=== PATIENT | male | born 1945 | race Caucasian/White ===

== ENCOUNTER 2019-02-14 17:07 | Inpatient (IN) | payer OTHER, MEDICARE ==
[~2019-02-14] VITALS: Ht 167.6 cm; Wt 77.7 kg
[2019-02-14] MEDS ORDERED: FURO40 PO (19:46)
[2019-02-14] MEDS ORDERED: NIFE60ER PO (19:46)
[2019-02-14] MEDS ORDERED: SEVEC800 PO (19:46)
[2019-02-14] MEDS ORDERED: TERA5 PO (19:47)
[2019-02-14] MEDS ORDERED: DOCU100 PO (19:47)
[2019-02-14] MEDS ORDERED: ICY HOT 4%-1%76.5 GM TOP (19:48)
[2019-02-14] MEDS ORDERED: POTA10T PO (19:48)
[2019-02-14] MEDS ORDERED: HYDRA25 PO (19:48)
[2019-02-14] MEDS ORDERED: Senna8.6 MG PO (19:48)
[2019-02-14] MEDS ORDERED: Fruity C250 MG PO (19:49)
[2019-02-14] MEDS ORDERED: HYDPAM50 PO (19:49)
[2019-02-14] MEDS ORDERED: TRAZ50 PO (19:50)
[2019-02-14] MEDS ORDERED: OXYB5 PO (19:50)
[2019-02-14] MEDS ORDERED: Vitamin D2000 UNIT PO (19:50)
[2019-02-14] MEDS ORDERED: Aspirin EC81 MG PO (22:01)
[2019-02-14] MEDS ORDERED: ATOR10 PO (22:02)
[2019-02-14] MEDS ORDERED: ERGO400 PO (22:04)
[2019-02-14] MEDS ORDERED: VOLTAREN GEL 1% TOP (22:07)
[2019-02-14] MEDS ORDERED: FAMO20 PO (22:08)
[2019-02-14] MEDS ORDERED: Eucerin Creme454 GM TOP (22:11)
[2019-02-14] MEDS ORDERED: MARIJUANA INH (22:15)
[2019-02-14] MEDS ORDERED: METCAR500 PO (22:16)
[2019-02-14] MEDS ORDERED: Lopressor 25 mg25 MG PO (22:17)
[2019-02-14] MEDS ORDERED: SILD50TA PO (22:20)
--- NOTE | 2019-02-15 04:22 | NUR ---
SHIFT SUMMARY- PT. ARRIVED FROM THE ER @2100 INTO ROOM 305 VIA STRETCHER. BROUGHT INTO FACILITY FROM THE [facility]. DX'S OF ACUTE ON CHRONIC KINDEY FAILURE. A&O, INDEPENDENT. CONSULT CALLED TO DR. RITTER. SCHEDULED MEDS GIVEN PER EMAR. NO IV FLUIDS RUNNING AT THIS TIME. PT. DENIED ANY NEEDS T/O THE NIGHT. ASLEEP T/O MOST OF THE SHIFT. CALL LIGHT WITHIN REACH AND SIDE RAILS UP X2. WILL CONT TO MONITOR.
[2019-02-15 07:32] LABS: BASOPHILS ABSOLUTE AUTO 0.04 K/mm3 (0.00-0.23); BASOPHILS PERCENT AUTO 1 % (0-2); EOSINOPHILS ABSOLUTE AUTO 0.47 K/mm3 (0.00-0.68); EOSINOPHILS PERCENT AUTO 8 % (0-6); Hematocrit 26.9 % (37.0-53.0); Hemoglobin 8.7 g/dL (13.5-17.5); IMMATURE GRAN ABSOLUTE AUTO 0.02 K/mm3 (0.00-0.10); IMMATURE GRAN PERCENT AUTO 0 % (0-1); LYMPHOCYTES ABSOLUTE AUTO 1.18 K/mm3 (0.84-5.20); LYMPHOCYTES PERCENT AUTO 19 % (21-46); MONOCYTES ABSOLUTE AUTO 0.72 K/mm3 (0.16-1.47); MONOCYTES PERCENT AUTO 12 % (4-13); Mean Corpuscular HGB 29.9 pg (26.0-34.0); Mean Corpuscular HGB Conc 32.3 g/dL (31.5-36.5); Mean Corpuscular Volume 92 fL (80-100); Mean Platelet Volume 9.4 fL (9.1-12.4); NEUTROPHILS ABSOLUTE AUTO 3.74 K/mm3 (1.96-9.15); NEUTROPHILS PERCENT AUTO 61 % (41-73); Platelet Count 285 K/mm3 (150-400); RDW Coefficient Variation 14.2 % (11.7-14.2); RDW Standard Deviation 48.3 fL (35.1-46.3); RETICULOCYTE ABSOLUTE 0.0442 M/mm3 (0.0200-0.1100); RETICULOCYTE COUNT PERCENT 1.52 % (0.50-2.50); Red Blood Cell Count 2.91 M/mm3 (4.30-5.90); White Blood Cell Count 6.17 K/mm3 (4.00-11.30)
[2019-02-15 07:42] LABS: Bun/Creatinine Ratio 7.9 (12.0-20.0); Calcium, Blood 8.8 mg/dL (8.5-10.1); Creatinine, Blood 3.94 mg/dL (0.60-1.20); Potassium, Blood 3.8 mmol/L (3.5-5.5)
[2019-02-15 07:54] LABS: Percent Saturation 18.4 % (20.0-50.0)
--- NOTE | 2019-02-15 20:33 | NUR ---
NO ACUTE CHANGES NOTED. NO CURRENT COMPLAINTS OF PAIN OR DISCOMFORT NOTED. PATIENT TO GO FOR KIDNEY BIOPSY IN THE MORINING. WILL CONTINUE TO MONITOR FOR CHANGES.
[2019-02-15 20:55] LABS: Bilirubin, Urine Neg (Neg); Blood, Urine 1+ (Neg); Glucose Qualitative, Urine Neg (Neg); Ketones, Urine Neg (Neg); Leukocyte Esterase, Urine Neg (Neg); Nitrite, Urine Neg (Neg); Protein, Urine 4+ (Neg); Specific Gravity, Urine 1.015 (1.003-1.022); Urobilinogen, Urine NORM (Normal)
[2019-02-15 21:02] LABS: Appearance, Urine Clear (Clear); Color, Urine Yellow (P-Yellow)
[2019-02-15 21:03] LABS: Red Blood Cells, Urine 0-2 /hpf (0-2); Squamous Epithelial Cells Rare /hpf (Few); White Blood Cells, Urine 0-2 /hpf (0-5)
[2019-02-15 21:04] LABS: Bacteria Rare /hpf
--- NOTE | 2019-02-16 03:19 | NUR ---
SHIFT SUMMARY- NO ACUTE CHANGES OVERNIGHT. PT. SCHEDULED FOR KIDNEY BIOPSY IN THE AM. SCHEDULED MEDS GIVEN PER EMAR. PT. RESTED WELL T/O THE NIGHT. DENIES ANY NEEDS. CALL LIGHT WITHIN REACH AND SIDE RAILS UP X2. WILL CONT TO MONITOR.
[2019-02-16 04:35] LABS: BASOPHILS ABSOLUTE AUTO 0.04 K/mm3 (0.00-0.23); BASOPHILS PERCENT AUTO 1 % (0-2); EOSINOPHILS ABSOLUTE AUTO 0.53 K/mm3 (0.00-0.68); EOSINOPHILS PERCENT AUTO 8 % (0-6); Hematocrit 24.7 % (37.0-53.0); Hemoglobin 8.1 g/dL (13.5-17.5); IMMATURE GRAN ABSOLUTE AUTO 0.01 K/mm3 (0.00-0.10); IMMATURE GRAN PERCENT AUTO 0 % (0-1); LYMPHOCYTES ABSOLUTE AUTO 1.63 K/mm3 (0.84-5.20); LYMPHOCYTES PERCENT AUTO 26 % (21-46); MONOCYTES ABSOLUTE AUTO 0.75 K/mm3 (0.16-1.47); MONOCYTES PERCENT AUTO 12 % (4-13); Mean Corpuscular HGB 30.8 pg (26.0-34.0); Mean Corpuscular HGB Conc 32.8 g/dL (31.5-36.5); Mean Corpuscular Volume 94 fL (80-100); NEUTROPHILS ABSOLUTE AUTO 3.44 K/mm3 (1.96-9.15); NEUTROPHILS PERCENT AUTO 54 % (41-73); Platelet Count 266 K/mm3 (150-400); RDW Coefficient Variation 14.2 % (11.7-14.2); RDW Standard Deviation 48.7 fL (35.1-46.3); Red Blood Cell Count 2.63 M/mm3 (4.30-5.90)
[2019-02-16 04:53] LABS: International Normalized Ratio 0.97; Prothrombin Time Results 10.3 Sec (9.7-11.5)
[2019-02-16 05:03] LABS: Albumin, Blood 2.6 g/dL (3.4-5.0); Anion Gap 6 mmol/L (6-16); Blood Urea Nitrogen 30 mg/dL (8-24); Bun/Creatinine Ratio 7.5 (12.0-20.0); CO2, Blood 25 mmol/L (21-32); Calcium, Blood 8.7 mg/dL (8.5-10.1); Chloride, Blood 109 mmol/L (98-108); Glomerular Filtration Rate 16 (60-); Glucose, Blood 88 mg/dL (70-99); Phosphorus, Blood 4.3 mg/dL (2.5-4.9); Potassium, Blood 3.5 mmol/L (3.5-5.5); Sodium, Blood 140 mmol/L (136-145)
--- NOTE | 2019-02-16 09:35 | NUR ---
PT. TO CT FOR BIOPSY VIA CART. BP MEDS GIVEN PRIOR TO PROCEDURE. PT. TRANSFERRED SELF FROM BED TO CART.
[2019-02-16 10:24] LABS: RPR Non-reactive (Nonreactive)
--- NOTE | 2019-02-16 11:00 | NUR ---
PT. BACK TO ROOM FROM PROCEDURE.A&O TRANSFERRED SELF TO BED. LAID BED FLAT AND GAVE PT. EXTRA PILLOW PER INSTRUCTION. REQUESTED MUSIC TO LISTEN TO. TURNED TV ON.
--- NOTE | 2019-02-16 11:30 | NUR ---
PT. REPORTING EXCRUCIATING PAIN IN RIGHT FLANK. CALLED RADIOLOGIST REGARDING HIS PAIN I FELT IT WAS EXCESSIVE FOR HIS PROCEDURE. RADIOLOGIST ORDERED NORCO BUT PT WAS NAUSEATED, CALLED DR. RIVERA FOR IV PAIN MED. CT. THEN CAME GOT PT. TO CHECK IF PATIENT WAS BLEEDING.
[2019-02-16 12:11] LABS: Antinuclear Antibody Screen Negative (Negative)
--- NOTE | 2019-02-16 12:14 | NUR ---
PT. GIVEN IV FENTYNYL AND CT CAME TO GET PT. RETURNED TO ROOM AT 1230. RADIOLOGIST TO INFORM ME PT WAS HAVING SEVERE BLEEDING INTERNALLY AND THAT I WAS SUPPOSED TO CALL DR. RITTER.
--- NOTE | 2019-02-16 13:10 | NUR ---
REPORT CALLED TO Donna CHANG RN IN ICU AND PT. TRANSFERRED TO ICU-11. PT.'S NS RUNNING WIDE OPEN PER DR. RITTER.
[2019-02-16 13:19] LABS: BASOPHILS ABSOLUTE AUTO 0.03 K/mm3 (0.00-0.23); BASOPHILS PERCENT AUTO 0 % (0-2); EOSINOPHILS ABSOLUTE AUTO 0.14 K/mm3 (0.00-0.68); EOSINOPHILS PERCENT AUTO 2 % (0-6); IMMATURE GRAN ABSOLUTE AUTO 0.04 K/mm3 (0.00-0.10); IMMATURE GRAN PERCENT AUTO 1 % (0-1); LYMPHOCYTES ABSOLUTE AUTO 1.24 K/mm3 (0.84-5.20); LYMPHOCYTES PERCENT AUTO 16 % (21-46); MONOCYTES ABSOLUTE AUTO 0.54 K/mm3 (0.16-1.47); MONOCYTES PERCENT AUTO 7 % (4-13); Mean Corpuscular HGB Conc 31.8 g/dL (31.5-36.5); Mean Platelet Volume 9.5 fL (9.1-12.4); NEUTROPHILS ABSOLUTE AUTO 6.02 K/mm3 (1.96-9.15); NEUTROPHILS PERCENT AUTO 75 % (41-73); Platelet Count 265 K/mm3 (150-400); RDW Coefficient Variation 14.5 % (11.7-14.2); RDW Standard Deviation 51.3 fL (35.1-46.3); Red Blood Cell Count 2.26 M/mm3 (4.30-5.90); White Blood Cell Count 8.01 K/mm3 (4.00-11.30)
[2019-02-16 13:20] LABS: Mean Corpuscular Volume 97 fL (80-100)
--- NOTE | 2019-02-16 13:20 | NUR ---
PT ADMITTED TO ICU FROM MEDICAL FLOOR FOR BLEED POST KIDNEY BX. PT AWAKE, C/O PAIN TO RIGHT FLANK 10/10. PT NAUSEATED AND WRETCHING. ZOFRAN 4MG IVP GIVEN. BP 99/57; NS BOLUS INFUSING. AWAITING BLOOD
[2019-02-16 13:38] LABS: Albumin, Blood 2.4 g/dL (3.4-5.0); Anion Gap 9 mmol/L (6-16); Blood Urea Nitrogen 32 mg/dL (8-24); Bun/Creatinine Ratio 7.9 (12.0-20.0); CO2, Blood 22 mmol/L (21-32); Calcium, Blood 8.5 mg/dL (8.5-10.1); Chloride, Blood 110 mmol/L (98-108); Creatinine, Blood 4.07 mg/dL (0.60-1.20); Glomerular Filtration Rate 15 (60-); Glucose, Blood 149 mg/dL (70-99); Phosphorus, Blood 4.1 mg/dL (2.5-4.9); Potassium, Blood 3.5 mmol/L (3.5-5.5); Sodium, Blood 141 mmol/L (136-145)
--- NOTE | 2019-02-16 13:54 | NUR ---
BLOOD TRANSFUSION STARTED, DR RIVERA CALLED TO GIVE UPDATE. PT REMAINS HYPOTENSIVE W PAIN TO R FLANK 10/10. NAUSEA IMPROVED.
--- NOTE | 2019-02-16 14:05 | NUR ---
CALLED DR DENNY: INFORMED DR DENNY OF CONSULT AND UPDATED WITH PT'S STATUS.
--- NOTE | 2019-02-16 14:45 | NUR ---
DR DENNY IN TO CONSULT PT. DISCUSSED CONTINUED HYPOTENSION. WORSE SINCE NS BOLUS FINISHED. 1ST UNIT OF BLOOD ALMOST COMPLETE, THEN F/U WITH 1 LITER NS BOLUS UNTIL 2ND UNIT OF BLOOD IS HERE. WILL RE-CHECK H+H 30 MINUTES AFTER 2ND UNIT PRBC'S.
--- NOTE | 2019-02-16 15:46 | NUR ---
PT TO WAIVER ANALYST FOR INTERVENTION W DR MARTINEZ. DR DENNY ON CASE. 2ND UNIT PRBC'S INFUSING AT 400CC PER DR DENNY. 2ND NS BOLUS STOPPED PER DR DENNY. PT'S FAMILY NOTIFIED PER PT REQUEST
--- NOTE | 2019-02-16 18:13 | NUR ---
ASSUMED CARE REPORT FROM ELENITA DENNY, PT. ARRIVAL FROM HEART CENTER STAFF. PT. ALERT AND ORIENTED UPON ARRIVAL. VSS. PT. REPORTS PAIN TO BACK, BUT REPORTS SIGNIFICANTLY LESS PAIN THEN PRIOR TO PROCEDURE. PT. HAS RIGHT GROIN SITE WITH CLEAR OCCLUSIVE DRESSING IN PLACE, SITE VERIFIED WITH HEART CENTER STAFF. NO OOZING, SOFT, NO HEMATOMA. 2+PULSES TO BILAT LE. PER HEART CENTER STAFF, 2 COILS PLACED DURING PROCEDURE ALONG WITH STENT TO RIGHT RENAL ARTERY. PT HAS MYNX CLOSURE DEVICE TO RIGHT GROIN. FAMILY UPDATED WHEN PT ARRIVED TO UNIT PER REQUEST. REPORT TO LUIS MIGUEL DENNY.
--- NOTE | 2019-02-16 20:00 | NUR ---
ASSUMED CARE OF PT AT 1915. REPORT RECEIVED AT BEDSIDE. PT PRESENTS IN BED. ALERT AND ORIENTED. PLEASANT AND COOPERATIVE WITH CARE AND ASSESSMENT. DENIES COMPLAINTS OF PAIN OR DISTRESS AT THIS TIME. RIGHT GROIN SITE VERIFIED WITH OFFGOING RN. SOFT NON-TENDER. NO HEMATOMA OR OOZING. GOOD DISTAL CMS CHECKS. WILL REVIEW CHART AND PLAN OF CARE FOR THIS PT.
--- NOTE | 2019-02-16 23:00 | NUR ---
RIGHT GROIN SITE REMAINS STABLE. PT UP TO TOILET WITH ASSIST. ORTHOSTATIC BLOOD PRESSURES DONE DURING THIS TIME. PT DOES HAVE DROP IN BLOOD PRESSURE WHILE STANDING. STATES MILDLY DIZZY WHICH CORRECTS QUICKLY. WAS ABLE TO AMBULATE IN ROOM WITHOUT COMPLAINTS. HAS LARGE BM, AND VOIDS. BACK TO BED. BLOOD PRESSURES WNL. WILL CONTINUE TO MONITOR.
[2019-02-17 04:07] LABS: HBSAG SCREEN Negative (Negative); HEP B CORE AB, TOT Negative (Negative); HEP C VIRUS AB >11.0 (0.0-0.9); HIV SCREEN 4TH GENERATION WRFX Non Reactive (Non Reactive)
[2019-02-17 04:52] LABS: BASOPHILS ABSOLUTE AUTO 0.02 K/mm3 (0.00-0.23); BASOPHILS PERCENT AUTO 0 % (0-2); EOSINOPHILS PERCENT AUTO 0 % (0-6); Hematocrit 21.4 % (37.0-53.0); Hemoglobin 7.1 g/dL (13.5-17.5); IMMATURE GRAN ABSOLUTE AUTO 0.03 K/mm3 (0.00-0.10); IMMATURE GRAN PERCENT AUTO 0 % (0-1); LYMPHOCYTES ABSOLUTE AUTO 1.22 K/mm3 (0.84-5.20); LYMPHOCYTES PERCENT AUTO 14 % (21-46); MONOCYTES ABSOLUTE AUTO 1.09 K/mm3 (0.16-1.47); MONOCYTES PERCENT AUTO 12 % (4-13); Mean Corpuscular HGB 31.3 pg (26.0-34.0); Mean Corpuscular HGB Conc 33.2 g/dL (31.5-36.5); Mean Platelet Volume 9.5 fL (9.1-12.4); NEUTROPHILS PERCENT AUTO 73 % (41-73); Platelet Count 192 K/mm3 (150-400); RDW Coefficient Variation 14.9 % (11.7-14.2); RDW Standard Deviation 51.7 fL (35.1-46.3); Red Blood Cell Count 2.27 M/mm3 (4.30-5.90); White Blood Cell Count 8.86 K/mm3 (4.00-11.30)
[2019-02-17 04:53] LABS: Mean Corpuscular Volume 94 fL (80-100)
[2019-02-17 05:12] LABS: Bun/Creatinine Ratio 7.9 (12.0-20.0); Calcium, Blood 7.7 mg/dL (8.5-10.1); Creatinine, Blood 4.55 mg/dL (0.60-1.20); Potassium, Blood 4.2 mmol/L (3.5-5.5)
--- NOTE | 2019-02-17 06:38 | NUR ---
PT HAS BEEN ABLE TO REST THIS NIGHT. DID HAVE SOME DESATURATIONS WHILE ASLEEP. PLACED 2 L/M O2 WHEREAS PT MAINTAINS >90 PERCENT SATURATIONS. CALL FROM PT'S DAUGHTER DEMETRIUS. VERBAL PERMISSION GIVEN BY PT TO GIVE HER UPDATES. LABS DRAWN THIS AM AND RESULTS CALLED TO DR IZAGUIRRE. ORDER RECEIVED. NO S/S BLEEDING OR FLANK PAIN VOICED BY PT. NO HEMATURIA. NOTED HGB 7.0 HAVE STARTED ONE UNIT PRBC'S. WILL PASS ON TO ONCOMING RN THAT H/H NEEDS TO BE DRAWN 1 HOUR POST TRANSFUSION. CALL MD. LABS DRAWN FROM PICC LINE WITHOUT ISSUES. DID CHANGE PICC LINE DRESSING THIS AM. PT COOPERATIVE WITH CARE. WILL CONTINUE TO MONITOR PT, AND WILL REPORT OFF TO ONCOMING RN.
--- NOTE | 2019-02-17 10:25 | NUR ---
0730: CARE ASSUMED, ASSESSMENT COMPLETED. PT DENIES PAIN OR C/O, RIGHT GROIN ACCESS SITE TENDER, WNL, DRSG CDI, NO BRUISING OR HEMATOMA NOTED. BIOPSY SITE TO RIGHT LOWER BACK WITH BANDAID DRSG CDI, LIGHT BRUISING BEGINNING TO FORM ON PT'S MID LOWER BACK, THIS IS EXPECTED PER DR. RIVERA. PT DENIES FLANK OR BACK PAIN, VSS, PRBC'S INFUSING PER ORDERS. DR. RIVERA AT BEDSIDE. O2 2L/NC, SPO2 97%, PT DENIES SOB. 0815: PRBC INFUSION COMPLETED WITHOUT S/SX REACTION, VSS. PT RESTING IN BED, DENIES C/O, TALKING ON PHONE. TOLERATED BREAKFAST WELL. 0900: PO MEDS TOLERATED WELL, VS REMAIN STABLE, SPO2 92-96% ON RA, OXYGEN REMAINS OFF. RIGHT GROIN SITE REMAINS WNL. 1030: H&H DRAWN, STIPPLER AT BEDSIDE FOR CONSULT.
[2019-02-17 10:36] LABS: Hematocrit 24.4 % (37.0-53.0)
--- NOTE | 2019-02-17 13:50 | NUR ---
1200: PT SITTING UP IN BED EATING LUNCH, DENIES PAIN, SOB, OR C/O, VSS. NO CHANGES NOTED TO BRUISING ON PT'S BACK, NO CHANGES TO R GROIN ACCESS SITE, SITE WNL. 1330: PT HAD A SHOWER, AMBULATED TO AND FROM WITHOUT DIFFICULTY, BACK IN BED RESTING AT THIS TIME. VSS, MEDS ADMINISTERED PER ORDERS, LABS DRAWN. PT DENIES NEEDS.
[2019-02-17 13:57] LABS: Hematocrit 23.9 % (37.0-53.0); Hemoglobin 7.8 g/dL (13.5-17.5)
--- NOTE | 2019-02-17 13:57 | NUR ---
NO CHANGES NOTED TO RIGHT GROIN ACCESS SITE AFTER AMBULATION AND SHOWER.
--- NOTE | 2019-02-17 16:35 | NUR ---
PT UP TO BR FOR BM AND VOID, REPORTS SOB WITH EXERTION. SPO2 88-90% ON RA, OXYGEN PLACED AT 2L/NC, SPO2 UP TO 91-92%. LS CLEAR, DIM IN BASES, HRR. RIGHT GROIN ACCESS SITE WNL, UNCHANGED, DRESSING CDI. PT DENIES PAIN OR OTHER C/O AT THIS TIME, VSS.
[2019-02-17 16:59] LABS: Hematocrit 23.4 % (37.0-53.0); Hemoglobin 7.6 g/dL (13.5-17.5)
--- NOTE | 2019-02-17 17:13 | NUR ---
DISCOLORATION TO PT'S BACK UNCHANGED FROM BEGINNING OF SHIFT.
--- NOTE | 2019-02-17 17:48 | NUR ---
PT RECEIVED FROM ICU NURSE AND WAS ASSISTED TO BED. PT DENIES PAIN. PT ORIENTED TO ROOM, CALL LIGHT AND NURSING STAFF. PT RESTING IN BED AND ABLE TO MAKE HIS NEEDS KNOWN.
--- NOTE | 2019-02-17 18:03 | NUR ---
1750: PT TOLERATED DINNER WELL, DENIES PAIN OR SOB AT THIS TIME. PT TO ROOM 326 VIA WC ON 2L O2, SENT WITH BELONGINGS, REPORT TO RECEIVING NURSE. NO CHANGED NOTED TO R GROIN ACCESS SITE, DISCOLORATION ON BACK, OR RIGHT RENAL BIOPSY SITE, DRESSINGS REMAIN CDI.
[2019-02-18 05:41] LABS: BASOPHILS ABSOLUTE AUTO 0.04 K/mm3 (0.00-0.23); BASOPHILS PERCENT AUTO 0 % (0-2); EOSINOPHILS ABSOLUTE AUTO 0.14 K/mm3 (0.00-0.68); EOSINOPHILS PERCENT AUTO 1 % (0-6); Hematocrit 25.7 % (37.0-53.0); Hemoglobin 8.5 g/dL (13.5-17.5); IMMATURE GRAN ABSOLUTE AUTO 0.07 K/mm3 (0.00-0.10); IMMATURE GRAN PERCENT AUTO 1 % (0-1); LYMPHOCYTES PERCENT AUTO 11 % (21-46); MONOCYTES ABSOLUTE AUTO 1.42 K/mm3 (0.16-1.47); MONOCYTES PERCENT AUTO 13 % (4-13); Mean Corpuscular HGB Conc 33.1 g/dL (31.5-36.5); Mean Corpuscular Volume 94 fL (80-100); Mean Platelet Volume 10.1 fL (9.1-12.4); NEUTROPHILS ABSOLUTE AUTO 7.69 K/mm3 (1.96-9.15); NEUTROPHILS PERCENT AUTO 73 % (41-73); Platelet Count 174 K/mm3 (150-400); RDW Coefficient Variation 14.8 % (11.7-14.2); Red Blood Cell Count 2.74 M/mm3 (4.30-5.90); White Blood Cell Count 10.56 K/mm3 (4.00-11.30)
[2019-02-18 05:57] LABS: Albumin, Blood 2.6 g/dL (3.4-5.0); Anion Gap 8 mmol/L (6-16); Blood Urea Nitrogen 41 mg/dL (8-24); Bun/Creatinine Ratio 7.7 (12.0-20.0); CO2, Blood 22 mmol/L (21-32); Calcium, Blood 7.8 mg/dL (8.5-10.1); Chloride, Blood 108 mmol/L (98-108); Glomerular Filtration Rate 11 (60-); Glucose, Blood 91 mg/dL (70-99); Phosphorus, Blood 4.6 mg/dL (2.5-4.9); Potassium, Blood 4.5 mmol/L (3.5-5.5); Sodium, Blood 138 mmol/L (136-145)
--- NOTE | 2019-02-18 08:03 | NUR ---
NOC SHIFT SUMMARY PT HAS BEEN PLEASANT AND COOPERATIVE WITH CARE THIS NIGHT. RECIEVED 1 UNIT PRBC WHICH WAS STARTED ON PREVIOUS SHIFT AND FINISHED ON MINE. TOLERATED WELL. TREATED FOR PAIN LAST EVENING TO GOOD EFFECT. AWOKE THIS MORNING WHEN LAB CAME TO DRAW AND WAS HAVING SEVERE R FLANK PAIN. TREATED WITH 100MCG FENTANYL. THIS DID NOT COVER PAIN. CALLED TO HOSPITALIST AND RECIEVED ORDER FOR ONE TIME DOSE OF DILAUDID. PT WAS HAVING INCREASED O2 DEMANDS, BUMPED FROM 3 TO 5 LITERS NC. HOSPITALIST AWARE. 5LNC BROUGHT O2 TO 91%. AFTER THIS PT WAS MUCH MORE COMFORTABLE AND COULD BREATHE NORMALLY. REPORT TO ONCOMING RN.
[2019-02-18 13:07] LABS: QUANTIFERON MITOGEN VALUE >10.00 IU/mL (.); QUANTIFERON NIL VALUE 0.19 IU/mL (.); QUANTIFERON TB2 AG VALUE 0.19 IU/mL (.); QUANTIFERON-TB GOLD PLUS Negative (Negative)
[2019-02-18 15:07] LABS: A/G RATIO 1.1 (0.7-1.7); ALBUMIN 2.7 g/dL (2.9-4.4); ALPHA-1-GLOBULIN 0.2 g/dL (0.0-0.4); ALPHA-2-GLOBULIN 0.7 g/dL (0.4-1.0); BETA GLOBULIN 0.7 g/dL (0.7-1.3); GLOBULIN, TOTAL 2.6 g/dL (2.2-3.9); IMMUNOGLOBULIN A, QN, SERUM 187 mg/dL (61-437); IMMUNOGLOBULIN G, QN, SERUM 916 mg/dL (700-1600); IMMUNOGLOBULIN M, QN, SERUM 56 mg/dL (15-143); M-SPIKE Not Observed g/dL (Not Observed); PROTEIN, TOTAL, SERUM 5.3 g/dL (6.0-8.5)
--- NOTE | 2019-02-18 17:27 | NUR ---
NOSE BLEED PT REPORTING THAT HE BLEW HIS NOSE AND NOW IT IS BLEEDING, TISSUES GIVEN AND BLEEDING STOPPED. WILL MONITOR
--- NOTE | 2019-02-18 18:36 | NUR ---
NO ACUTE CHANGES NOTED THIS SHIFT, ONE REOCCURANCE OF NOSE BLEED, BLED LITTLE AND FOR A SHORT TIME. NO BLEEDING AT THIS TIME. WILL CONTINUE TO MONITOR AND REPORT TO LUIS MIGUEL DENNY
--- NOTE | 2019-02-19 05:20 | NUR ---
SCIENTIFIC WRITER SUMMARY PT AAOX3 AND COOPERATIVE WITH CARE. STILL HAVING SOME PAIN FROM RENAL BIOPSY SITE, ALTHOUGH PT STATES IT ONLY HURTS IF HE GETS UP AND MOVES AROUND. THIS RN NOTIFIED BY LEARNING FACILITATOR DURING MORNING VITALS THAT PT'S O2 SATS WERE IN THE MID 80'S ON 4L O2 VIA NC. PT HAS A SIGNIFICANT POSITIVE FLUID BALANCE AND THIS RN NOTED SOME CRACKLES IN THE LUNG BASES. NOTIFIED DR HAMILTON OF POSITIVE FLUID BALANCE AND PT'S NEW INCREASE IN O2 DEMANDS, RECIEVED AN ORDER FOR 40 MG IV LASIX. NOTIFED RT TO SET UP PT WITH HIGH FLOW NC. PT NOW ON 8L O2 VIA HFNC, SATTING BETWEEN 88-90%, WHICH IS AN ACCEPTABLE RANGE DUE TO PT'S HX OF COPD. OTHER VITALS STABLE, WILL CONTINUE TO MONITOR.
[2019-02-19 05:57] LABS: BASOPHILS ABSOLUTE AUTO 0.03 K/mm3 (0.00-0.23); BASOPHILS PERCENT AUTO 0 % (0-2); EOSINOPHILS PERCENT AUTO 1 % (0-6); Hematocrit 23.3 % (37.0-53.0); Hemoglobin 7.6 g/dL (13.5-17.5); IMMATURE GRAN ABSOLUTE AUTO 0.08 K/mm3 (0.00-0.10); IMMATURE GRAN PERCENT AUTO 1 % (0-1); LYMPHOCYTES ABSOLUTE AUTO 1.07 K/mm3 (0.84-5.20); LYMPHOCYTES PERCENT AUTO 9 % (21-46); MONOCYTES ABSOLUTE AUTO 1.78 K/mm3 (0.16-1.47); MONOCYTES PERCENT AUTO 14 % (4-13); Mean Corpuscular HGB 30.5 pg (26.0-34.0); Mean Corpuscular HGB Conc 32.6 g/dL (31.5-36.5); Mean Corpuscular Volume 94 fL (80-100); Mean Platelet Volume 10.3 fL (9.1-12.4); NEUTROPHILS ABSOLUTE AUTO 9.37 K/mm3 (1.96-9.15); NEUTROPHILS PERCENT AUTO 76 % (41-73); Platelet Count 168 K/mm3 (150-400); RDW Coefficient Variation 14.5 % (11.7-14.2); Red Blood Cell Count 2.49 M/mm3 (4.30-5.90); White Blood Cell Count 12.43 K/mm3 (4.00-11.30)
[2019-02-19 06:08] LABS: Bun/Creatinine Ratio 7.8 (12.0-20.0); Calcium, Blood 8.1 mg/dL (8.5-10.1); Creatinine, Blood 6.51 mg/dL (0.60-1.20); Potassium, Blood 4.6 mmol/L (3.5-5.5)
--- NOTE | 2019-02-19 10:55 | NUR ---
Initial Visit: Palliative Care Constul for Liver, Medically Fragile, Advanced Care Planning, and Symptom Management. Pt is A&Ox3. When asked current year Pt states it is 1998. Pt denies pain at this time but does report pain in his groin and hip with exertion. Pt reports mild but managable anxiety due to anticipation of biopsy results. He also reports 3 to 4/7 dyspnea. Currently on 8L O2 via high flow NC. Pt reports he does not use oxygen at home. Engaged in therapeutic discussion regarding Advanced Care Planning. Pt reports living in [place] and has a room mate who trupti has significant health issues. He states "We look out for each other". Pt reports he does not practice any methodist. He reports at baseline is independent of ADL's but has not been out of bed since being in the hospital. He reports some weakness and states he would probably need some help with transfering and ambulation at this point. Discussed the importance of having routing conversation with his doctor and specialist regarding disease process of CHF and CKD. Pt appears mildy confused during conversation. Pt reports he is forgetful and experiences short term memory issues. Suggested to write questions down on paper before each doctor's visit. Ended visit at this point to allow Pt to process and reflect. He is agreeable for palliative care to F/U with therapeutic visits. Spoke with bedside nurse John and discussed case. Palliative Care will remain available.
--- NOTE | 2019-02-19 11:09 | NUR ---
Late Entry from previous visit. During discussion Pt reports he is 70% service connected. During visit Pt reports open to the idea of [facility] caregivers if he does not return to [facility].
[2019-02-19 11:55] LABS: Hematocrit 25.7 % (37.0-53.0); Hemoglobin 8.4 g/dL (13.5-17.5)
[2019-02-19 16:06] LABS: ANA DIRECT Negative (Negative); ANTIMYELOPEROXIDASE (MPO) ABS <9.0 U/mL (0.0-9.0); ANTIPROTEINASE 3 (PR-3) ABS <3.5 U/mL (0.0-3.5); ATYPICAL PANCA <1:20 titer (Neg:<1:20); CYTOPLASMIC (C-ANCA) <1:20 titer (Neg:<1:20); PERINUCLEAR (P-ANCA) <1:20 titer (Neg:<1:20)
--- NOTE | 2019-02-19 16:26 | NUR ---
SHIFT SUMMARY THE PATIENT PRESENTED THIS SHIFT WITH CLEAR LUNG SOUNGS, A&O X3 AND WITH VITALS WNL. THE PATIENT NEEDED A UNIT OF PRBC'S THIS AM AND GOT AND GOT THEM. THE PATIENT HAQS BEEN UP WITH P/T AND HAS DONE WELL WALKINF IN HIS ROOM THE PATIENT HAS GOTTEN UP TO BRUSH HIS TEETH AND USE THE RESTROOM. THE PATIENT COMPLAINED OF PAIN WHEN HE MOVED EARILIER WHEN HIE MOVED, BUT HAS NOT COMPLAINED HE GOT OUT OF BED. THE PATIENT WORKED WITH P/O-O/T AND HAS DONE WELL. THE P[ATIENT IS RESTING AT THIS TIME, WILL CONTINUE TO MONITOR.
[2019-02-19 19:18] LABS: PCO2 Arterial 34.4 mmHg (35-45); PO2 Arterial 53.4 mmHg (80-100); pH Blood Arterial 7.36 (7.35-7.45)
[2019-02-19 20:02] LABS: Albumin, Blood 2.8 g/dL (3.4-5.0); Anion Gap 10 mmol/L (6-16); Blood Urea Nitrogen 59 mg/dL (8-24); Bun/Creatinine Ratio 8.4 (12.0-20.0); CO2, Blood 21 mmol/L (21-32); Calcium, Blood 8.3 mg/dL (8.5-10.1); Chloride, Blood 104 mmol/L (98-108); Creatinine, Blood 7.04 mg/dL (0.60-1.20); Glomerular Filtration Rate 8 (60-); Glucose, Blood 143 mg/dL (70-99); Phosphorus, Blood 5.5 mg/dL (2.5-4.9); Potassium, Blood 4.5 mmol/L (3.5-5.5); Sodium, Blood 135 mmol/L (136-145)
--- NOTE | 2019-02-20 05:05 | NUR ---
SHIFT SUMMARY: PT IS ALERT AND ORIENTED. PT IS CALM AND COOPERATIVE WITH CARE. PT USING THE URINAL IN BED INDEPENDENTLY, STANDBY ASSIST DURING AMBULATION. PT REPORTS SOB UPON EXERTION, O2 BETWEEN 4 AND 8 L VIA HF NC. PT DENIES PAIN, NAUSEA, AND VOMITING. PT SLEPT PERIODICALY THROUGHOUT THE NIGHT. NO ACUTE CHANGES OR COMPLICATIONS THIS SHIFT. BED IN LOW POSITION, CALL LIGHT WITHIN REACH.
[2019-02-20 05:44] LABS: BASOPHILS ABSOLUTE AUTO 0.04 K/mm3 (0.00-0.23); BASOPHILS PERCENT AUTO 0 % (0-2); EOSINOPHILS ABSOLUTE AUTO 0.03 K/mm3 (0.00-0.68); EOSINOPHILS PERCENT AUTO 0 % (0-6); Hemoglobin 8.4 g/dL (13.5-17.5); IMMATURE GRAN PERCENT AUTO 1 % (0-1); LYMPHOCYTES ABSOLUTE AUTO 1.05 K/mm3 (0.84-5.20); LYMPHOCYTES PERCENT AUTO 8 % (21-46); MONOCYTES ABSOLUTE AUTO 1.49 K/mm3 (0.16-1.47); MONOCYTES PERCENT AUTO 12 % (4-13); Mean Corpuscular HGB 31.6 pg (26.0-34.0); Mean Corpuscular HGB Conc 33.6 g/dL (31.5-36.5); Mean Corpuscular Volume 94 fL (80-100); Mean Platelet Volume 10.1 fL (9.1-12.4); NEUTROPHILS ABSOLUTE AUTO 10.15 K/mm3 (1.96-9.15); NEUTROPHILS PERCENT AUTO 79 % (41-73); Platelet Count 193 K/mm3 (150-400); RDW Coefficient Variation 14.5 % (11.7-14.2); RDW Standard Deviation 49.7 fL (35.1-46.3); Red Blood Cell Count 2.66 M/mm3 (4.30-5.90); White Blood Cell Count 12.86 K/mm3 (4.00-11.30)
[2019-02-20 06:03] LABS: Albumin, Blood 2.8 g/dL (3.4-5.0); Anion Gap 11 mmol/L (6-16); Blood Urea Nitrogen 62 mg/dL (8-24); Bun/Creatinine Ratio 8.4 (12.0-20.0); CO2, Blood 20 mmol/L (21-32); Calcium, Blood 8.5 mg/dL (8.5-10.1); Chloride, Blood 104 mmol/L (98-108); Creatinine, Blood 7.42 mg/dL (0.60-1.20); Glomerular Filtration Rate 8 (60-); Glucose, Blood 127 mg/dL (70-99); Phosphorus, Blood 5.8 mg/dL (2.5-4.9); Potassium, Blood 4.6 mmol/L (3.5-5.5); Sodium, Blood 135 mmol/L (136-145)
--- NOTE | 2019-02-20 10:31 | NUR ---
PT HAD MENTIONED A PERMACATH PLACEMENT, NOTED TO NOT HAVE A SURGICAL CONSULT FOR PERMACATH. SPOKE WITH DR RIVERA WHO REPORTS PT NEEDS A CONSULT HOWEVER NOTED PT HAD A CONSULT THAT WAS CANCELLED BY DR RITTER. SPOKE WITH DR RITTER WHO REPORTS SHE WILL TALK WITH DR RIVERA. AT THIS TIME NO CONSULT ORDERED.
--- NOTE | 2019-02-20 11:56 | NUR ---
RT BROUGHT UP CONT BIOX THIS AM, PT NOTED TO HAVE SATS FROM 80-83% WHEN SLEEPING ON 12L HIGH FLOW 02. SATS 85-90% WHEN AWAKE. PT REPORTS HE IS ACTUALLY FEELING BETTER BUT CONT TO HAVE LOW SATS. SPOKE WITH RT WHO PLACED PT ON NON REBREATHER. DR RITTER IN TO SEE PT AND NOTIFIED OF RESPIRATORY STANDPOINT WELL BLADDER SCAN OF 263, PT ABLE TO VOID 100ML POST SCAN. PT WITH ONLY 100ML URINE OUTPUT TODAY EVEN AFTER IV BUMEX. DR RITTER SPOKE WITH DR JAMISON FOR SURGICAL CONSULT FOR PERMCATH PLACEMENT, PT PLACED NPO STATUS AT THIS TIME. WILL CONT TO MONITOR. SATS 95% ON NON REBREATHER.
--- NOTE | 2019-02-20 12:48 | NUR ---
DR JAMISON IN TO SEE PT.
--- NOTE | 2019-02-20 16:13 | NUR ---
PT GAVE VERBAL PERMISSION FOR ME TO TALK WITH AND UPDATE BROTHER AMANDA AND DAUGHTER WILLIAM VIA PHONE.
--- NOTE | 2019-02-20 17:16 | NUR ---
SHIFT SUMMARY- PT A/O X3 BUT CAN BE CONFUSED AT TIMES. PT STARTED THIS AM ON 8L HIGH FLOW, PT PLACED ON CONT BIOX AND NOTED TO 80-83% WHEN SLEEPING, 02 INCREASED TO 12L AND LATER PLACED ON NON REBREATHER. SATS 89-90% ON NON REBREATHER. PT SOB WITH EXERTION. LS CLEAR. PT WITH ONLY 130ML URINE OUTPUT THIS SHIFT, IV BUMEX INCREASED TO 4MG BID, ADDITIONAL DOSE GIVEN THIS AFTERNOON. BLADDER SCAN OF 263 PRIOR TO VOIDING 100ML. CONSULT PLACED WITH DR JAMISON FOR PERMACATH PLACEMENT TONIGHT, AWAITING THIS. DIALYSIS NURSE TO BE NOTIFIED WHEN PT LEAVES FOR THE OR AND PLAN FOR DIALYSIS TONIGHT. PT UP INDEP AT BEDSIDE TO USE URINAL. BEDBATH COMPLETED. RIGHT GROIN SITE DRESSING INTACT. PICC TO DEVAN, NEW 18G PLACED TO BISMARK FOR PROCEDURE. PT REPORTS NO BM X3 DAYS, PT STARTED ON MIRALAX.
--- NOTE | 2019-02-20 19:50 | NUR ---
PT WAS AWAITING PERMACATH PLACEMENT THIS EVENING, OFFICE INSPECTOR'S CAME UP TO PT'S ROOM AROUND 1800 AND NOTIFIED PT THEY ARE RUNNING BEHIND. AT APROX 1845 I WAS NOTIFIED BY RN DRIER BELT CONVEYOR JESSIE THAT THEY WERE CANCELLING PT'S CASE TONIGHT FOR PERMACATH. AT THIS TIME PT NOTED TO HAVE INCREASED CONFUSION, SET THE BED ALARM OFF AND STATING HE WAS GOING TO GO BACK HOME TOMORROW TO [facility]. I CONFIRMED WITH OR STAFF THAT PT'S CASE HAS BEEN CANCELLED AND WILL BE TOMORROW. I SPOKE WITH DR RITTER REGARDING THIS AND ALSO NOTIFYING HER THAT PT HAS REMAINED ON 15L NON REBREATHER, INCREASED CONFUSION AND ALSO NO FURTHER URINE OUTPUT WITH A TOTAL URINE OUTPUT TODAY OF 130ML AFTER BUMEX X3 DOSES FOR A TOTAL OF 10MG. PER DR RITTER TRANSFER PT TO ICU SHE WILL TALK TO ATTENDING FOR POSSIBLE TEMPORARY CATHETER FOR DIALYSIS. MARIANO WITH DIALYSIS NOTIFIED OF THIS PLAN. REPORT CALLED TO LAITH IN ICU. PT BROTHER MOMO HAPPENED TO BE ON THE PHONE IN PT'S ROOM AND WAS ALSO NOTIFIED OF PT TRANSFERING TO ICU. PT TRANSFERED TO ICU 7 VIA BED AT APROX 1936. COMPRESSOR SERVICE TECHNICIAN HOSPITALIST MIRIAN HUNG NOTIFIED OF TRANSFER PER DR RITTER.
[2019-02-20 20:12] LABS: PCO2 Arterial 30.5 mmHg (35-45); PO2 Arterial 59.1 mmHg (80-100); pH Blood Arterial 7.39 (7.35-7.45)
[2019-02-20 20:48] LABS: Prothrombin Time Results 10.6 Sec (9.7-11.5)
[2019-02-20 21:54] LABS: Albumin, Blood 2.9 g/dL (3.4-5.0); Albumin/Globulin Ratio 0.7 (0.8-1.8); Bilirubin, Total 0.6 mg/dL (0.1-1.0); Bun/Creatinine Ratio 8.4 (12.0-20.0); Calcium, Blood 8.3 mg/dL (8.5-10.1); Creatinine, Blood 7.5 mg/dL (0.60-1.20); Globulin, Blood 4.3 g/dL (2.2-4.0); Potassium, Blood 4.6 mmol/L (3.5-5.5); Total Protein, Blood 7.2 g/dL (6.4-8.2)
--- NOTE | 2019-02-20 22:11 | NUR ---
TRANSFER TO ICU PT WAS TRANSFERED TO ICU 7 AT 1940. PT WAS SOB ON 15L NRB. PT IS ABLE TO STATE HIS NAME, WHERE HE IS, AND DATE. DR. BANUELOS CAME IN TO EVALUATE PT FOR TEMPORARY DIALYSIS ACCESS. PT IS APPREHENSIVE TO HAVE ONE PLACED AFTER HE HAD COMPLICATIONS FROM THE KIDNEY BIOPSY. DR. RITTER AT BEDSIDE WELL. CXR DONE. BIPAP WAS ORDERED AND PT WAS PLACED ON BIPAP. PT IS TOLERATING BIPAP REALLY WELL. SETTINGS 8/5 AND IS DOWN TO 50%. SPO2 GREATER THAN 90%. PT IS NOT SOB NOW. BUMEX WAS GIVEN PER DR. RITTER ORDERS. PLAN FOR NOW IS IF PT GETS IN TO DISTRESS TONIGHT HE WILL HAVE AN EMERGENT TEMPORARY DIALYSIS ACCESS BUT IF PT CONTINUES TO BE STABLE THROUGH THE NIGHT ON THE BIPAP HE WILL HAVE ONE PLACED IN OR TOMORROW. WILL KEEP PT NPO FOR NOW WITH EXCEPTION OF MEDS. PT ABLE TO TAKE MEDS WITH WATER WITHOUT DIFFICULTY. NO SIGN OF DISTRESS AT THE MOMENT. DAUGHTER HAS BEEN UPDATED BY DR. RITTER AND THIS RN.
[2019-02-21 04:34] LABS: BASOPHILS ABSOLUTE AUTO 0.02 K/mm3 (0.00-0.23); BASOPHILS PERCENT AUTO 0 % (0-2); EOSINOPHILS ABSOLUTE AUTO 0.02 K/mm3 (0.00-0.68); EOSINOPHILS PERCENT AUTO 0 % (0-6); Hematocrit 24.5 % (37.0-53.0); IMMATURE GRAN ABSOLUTE AUTO 0.08 K/mm3 (0.00-0.10); IMMATURE GRAN PERCENT AUTO 1 % (0-1); LYMPHOCYTES PERCENT AUTO 8 % (21-46); MONOCYTES ABSOLUTE AUTO 1.36 K/mm3 (0.16-1.47); MONOCYTES PERCENT AUTO 10 % (4-13); Mean Corpuscular HGB 30.3 pg (26.0-34.0); Mean Corpuscular HGB Conc 32.7 g/dL (31.5-36.5); Mean Corpuscular Volume 93 fL (80-100); Mean Platelet Volume 10.1 fL (9.1-12.4); NEUTROPHILS ABSOLUTE AUTO 10.76 K/mm3 (1.96-9.15); NEUTROPHILS PERCENT AUTO 81 % (41-73); Platelet Count 219 K/mm3 (150-400); RDW Coefficient Variation 14.3 % (11.7-14.2); RDW Standard Deviation 48.9 fL (35.1-46.3); Red Blood Cell Count 2.64 M/mm3 (4.30-5.90); White Blood Cell Count 13.24 K/mm3 (4.00-11.30)
--- NOTE | 2019-02-21 04:37 | NUR ---
PT HAS BEEN ON AND OFF THE BIPAP. HE BECOMES SOB AND SPO2 DROPS TO THE 80'S WHEN OF BIPAP. PT WAS IRRITABLE ABOUT WANTING TO GET OOB TO URINATE. HAD ONLY HAD 50ML THIS SHIFT. BLADDER SCAN SHOWED 439ML IN BLADDER. PT AGREED TO HAQUE CATHETER DUE TO NOT ABLE TO GET OOB, DYSPNEA, AND STRICT I&O. PT TOLERATED PROCEDURE WELL. PT IS CONFUSED AT TIMES AND NEEDS FREQUENT REORIENTATION BUT SEEMS TO REORIENT EASILY.
[2019-02-21 04:50] LABS: Albumin, Blood 2.8 g/dL (3.4-5.0); Anion Gap 13 mmol/L (6-16); Blood Urea Nitrogen 64 mg/dL (8-24); Bun/Creatinine Ratio 8.2 (12.0-20.0); CO2, Blood 18 mmol/L (21-32); Calcium, Blood 8.4 mg/dL (8.5-10.1); Chloride, Blood 106 mmol/L (98-108); Creatinine, Blood 7.85 mg/dL (0.60-1.20); Glomerular Filtration Rate 7 (60-); Glucose, Blood 117 mg/dL (70-99); Phosphorus, Blood 5.7 mg/dL (2.5-4.9); Potassium, Blood 4.6 mmol/L (3.5-5.5); Sodium, Blood 137 mmol/L (136-145)
[2019-02-21 04:52] LABS: Source, Urine Catheter
[2019-02-21 04:55] LABS: Bilirubin, Urine Neg (Neg); Blood, Urine Neg (Neg); Glucose Qualitative, Urine Neg (Neg); Ketones, Urine Neg (Neg); Leukocyte Esterase, Urine Neg (Neg); Nitrite, Urine Neg (Neg); Protein, Urine 4+ (Neg); Urobilinogen, Urine NORM (Normal)
[2019-02-21 05:09] LABS: Appearance, Urine Hazy (Clear); Color, Urine Yellow (P-Yellow); Red Blood Cells, Urine Not Seen /hpf (0-2); White Blood Cells, Urine Not Seen /hpf (0-5)
[2019-02-21 05:10] LABS: Amorphous Mod (0-Heavy); Bacteria Rare /hpf; Hyaline Casts 0-2 /lpf (0-2); Squamous Epithelial Cells Few /hpf (Few)
--- NOTE | 2019-02-21 06:13 | NUR ---
SUMMARY PT MOVED TO THE ICU DUE TO RESP DISTRESS. PT HAS BEEN ON AND OFF THE BIPAP ALL NIGHT. SETTINGS 8/5 FIO2 50%. PT IS CONFUSED AT TIMES AND WILL TAKE THE BIPAP OFF. NEEDS REORIENTATION. WILL FOLLOW COMMANDS. DYSPNEIC WHEN OFF THE BIPAP. ON 15L OXYMIZER WHEN OFF THE BIPAP AND WILL STILL DROP SPO2 IN THE 80'S. HAQUE PLACED DUE TO DYSPNEA, RETENTION, AND STICT I&O. PLAN IS TO TAKE PT TO OR TODAY FOR PERMACATH PLACEMENT. PT HAS BEEN NPO ANTICIPATING PROCEDURE.
--- NOTE | 2019-02-21 08:00 | NUR ---
CARE ASSUMED, ASSESSMENT COMPLETED. PT RESTING IN BED, REPORTS MINIMAL LOWER ABDOMINAL PAIN, DENIES NEED FOR PAIN INTERVENTION. VSS, SPO2 97%, BIPAP 8/5, FIO2 50%. PT CONFUSED BUT EASILY DIRECTABLE, PLEASANT. DR. RIVERA IN TO SEE PT, US TECH AT BEDSIDE FOR ABD US.
--- NOTE | 2019-02-21 08:34 | NUR ---
Surgical site prepped with 2% Chlorhexidine cloth wipe. History, Chart, Medications and Allergies reviewed before start of procedure. Lungs clear T/O to Auscultation. Patient confirms NPO status and agrees with scheduled surgery. Pre-Op teaching done. Pt verbalizes understanding.
--- NOTE | 2019-02-21 08:59 | NUR ---
PT TO OR.
--- NOTE | 2019-02-21 10:28 | NUR ---
PT BACK FROM OR AT 0947 INTUBATED, DR. DENNY AT BEDSIDE. ETT SIZE 7.5, 21CM AT THE LIP. PROPROFOL INFUSION INITIATED, OGT INSERTED. VENT SETTINGS AC 14, Vt 400, FIO2 60%, PEEP 10. LS CLEAR, DIM IN BASES, WHITE SPUTUM SUCTIONED FROM ETT. PERMACATH TO RIGHT CHEST WALL, CHG DRESSING CDI, NO BLEEDING OR OOZING NOTED AT SITE. VSS, WRIST RESTRAINTS IN PLACE, WILL TITRATE PROPOFOL TO EFFECT. 1030: ABG DRAWN, CXR DONE.
[2019-02-21 10:33] LABS: PCO2 Arterial 34.2 mmHg (35-45); PO2 Arterial 66.3 mmHg (80-100); pH Blood Arterial 7.32 (7.35-7.45)
--- NOTE | 2019-02-21 11:51 | NUR ---
1145: ETT ADVANCED BY 3CM BY RT PER DR. DENNY, IS NOW 24CM AT THE LIP. FENTANYL ADMINISTERED FOR AGITATION, PT NOW RESTING QUIETLY, NOT CHEWING ON ETT. HR 54, VSS, PROPOFOL DECREASED TO 40MCG.
--- NOTE | 2019-02-21 13:09 | NUR ---
PROPOFOL INFUSING AT 30MCG AT THIS TIME, HR 50'S, PT BECOMING AGITATED, WILL CALL FOR FENTANYL ORDER CHANGE. VITAL HIGH PROTEIN PER OG TUBE PER ORDERS. SCANT BLOOD OOZING FROM DIALYSIS PERMACATH SITE, SITE OTHERWISE WNL. DIALYSIS NURSE ON HER WAY TO BEGIN TREATMENT.
--- NOTE | 2019-02-21 17:00 | NUR ---
1500: PT RECEIVING DIALYSIS, VSS, PT SEEMS TO BE TOLERATING WELL. PROPOFOL AT 30MCG WITH INTERMITTENT FENTANYL PRN FOR SEDEATION AND COMFORT. PT RESTING QUIETLY AT THIS TIME WITH NO AGITATION OR RESTLESSNESS NOTED. 1700: FIO2 35%, SPO2 97%, PT RESTING QUIETLY. DIALYSIS COMPLETED, PT REPOSITIONED, RT AT BEDSIDE AT THIS TIME.
--- NOTE | 2019-02-21 18:18 | NUR ---
PT AGIATED AFTER REPOSITIONING AND BEDBATH, EYES ARE OPEN, PT TRACKING. PROPOFOL RATE INCREASED TO 40MCG, FENTANYL ADMINISTERED PER ORDERS. PT CALMS QUICKLY AFTER FENTANLY. VSS, CURRENT VENT SETTINGS AC 14, Vt 400, FIO2 25%, PEEP 10, SPO2 95%, RR 18-22. LS CLEAR, DIM IN BASES, HR SINUS 50'S - 60'S, BP WNL. TF INFUSING AT 25ML/HR PER ORDERS, PT TOLERATING WELL. EDEMA REMAINS IN ALL EXTREMETIES. REPORT TO ONCOMING SHIFT.
--- NOTE | 2019-02-21 19:13 | NUR ---
ASSUMED CARE RECEIVED REPORT FROM ANH. PT IS INTUBATED WITH A 7.5 ETT, 24 @ LIP. VENT SETTINGS ARE AC14/400/10/25%. PROPOFOL IS INFUSING AT 40MCG/KG/MIN. VITAL HIGH PROTEIN IS INFUSING AT 25ML/HR, WITH Q4 30ML FLUSHES. HAQUE IS PATENT AND HANGING TO GRAVITY. SCD'S ARE IN PLACE. SWB RESTRAINTS ARE ON BOTH WRISTS. PT IS IN SINUS BRADYCARDIA, WITH PAC'S. BLOOD PRESSURE STABLE, EXTREMETIES WARM TO TOUCH, DISTAL PULSES PALPATED. BED IS LOW AND LOCKED.
--- NOTE | 2019-02-21 20:19 | NUR ---
Review of patient with nursing and dialysis nurse will follow up on plan of care.
--- NOTE | 2019-02-21 22:00 | NUR ---
UPDATE TUBE FEEDING INCREASED TO GOAL: 40ML/HR, TOLERATING IT WELL.
[2019-02-22 04:34] LABS: BASOPHILS ABSOLUTE AUTO 0.03 K/mm3 (0.00-0.23); BASOPHILS PERCENT AUTO 0 % (0-2); EOSINOPHILS ABSOLUTE AUTO 0.21 K/mm3 (0.00-0.68); EOSINOPHILS PERCENT AUTO 3 % (0-6); Hematocrit 22.3 % (37.0-53.0); Hemoglobin 7.4 g/dL (13.5-17.5); IMMATURE GRAN ABSOLUTE AUTO 0.03 K/mm3 (0.00-0.10); IMMATURE GRAN PERCENT AUTO 0 % (0-1); LYMPHOCYTES ABSOLUTE AUTO 1.45 K/mm3 (0.84-5.20); LYMPHOCYTES PERCENT AUTO 19 % (21-46); MONOCYTES ABSOLUTE AUTO 1.02 K/mm3 (0.16-1.47); MONOCYTES PERCENT AUTO 13 % (4-13); Mean Corpuscular HGB 30.8 pg (26.0-34.0); Mean Corpuscular HGB Conc 33.2 g/dL (31.5-36.5); Mean Corpuscular Volume 93 fL (80-100); Mean Platelet Volume 10.1 fL (9.1-12.4); NEUTROPHILS ABSOLUTE AUTO 4.97 K/mm3 (1.96-9.15); NEUTROPHILS PERCENT AUTO 65 % (41-73); Platelet Count 237 K/mm3 (150-400); RDW Coefficient Variation 13.9 % (11.7-14.2); RDW Standard Deviation 47.9 fL (35.1-46.3); White Blood Cell Count 7.71 K/mm3 (4.00-11.30)
[2019-02-22 04:50] LABS: Albumin, Blood 2.2 g/dL (3.4-5.0); Albumin/Globulin Ratio 0.6 (0.8-1.8); Bilirubin, Total 0.5 mg/dL (0.1-1.0); Bun/Creatinine Ratio 8.1 (12.0-20.0); Creatinine, Blood 5.18 mg/dL (0.60-1.20); Magnesium, Blood 2.4 mg/dL (1.6-2.4); Potassium, Blood 3.5 mmol/L (3.5-5.5); Total Protein, Blood 6.2 g/dL (6.4-8.2)
[2019-02-22 05:21] LABS: PCO2 Arterial 38.1 mmHg (35-45); PO2 Arterial 54.8 mmHg (80-100); pH Blood Arterial 7.49 (7.35-7.45)
--- NOTE | 2019-02-22 05:28 | NUR ---
SBT PT FINISHED SBT, AND REMAINS ON SPONTANEOUS SETTINGS. SEE RT NOTE. PT REMAINS OFF PROPOFOL. TOLERATING IT WELL.
--- NOTE | 2019-02-22 06:37 | NUR ---
SHIFT SUMMARY PT REMAINS INTUBATED ON VENT (ETT 7.5, 24 AT LIP) ON SPONTANEOUS SETTINGS. SEE RT NOTE REGARDING SBT. PROPOFOL REMAINS OFF. PT FOLLOWED DIRECTIONS, SQUEEZED FINGERS, WIGGLED TOES, AND DENIED ANY CURRENT PAIN. PT IS IN SINUS BRADYCARDIA WITH PAC'S; RANGING FROM 48-65. PT'S LUNGS ARE COARSE, BUT HAVE IMPROVED THROUGHOUT NIGHT. PT HAD MINIMAL URINE OUTPUT, BUT HAD DIALYSIS YESTERDAY (-2600ML) AND IS SCHEDULED TO RECEIVE IT TODAY WELL. TUBE FEEDING AT GOAL 40ML/HR, OF VITAL HIGH PROTEIN. PT HAD LOW RESIDUALS ALL NIGHT. PT REMAINS IN SWB RESTRAINTS. PT IS EDEMATOUS THROUGHOUT. BED LOW AND LOCKED. UPDATED "DAUGHTER" (NOT BIOLOGICAL, BUT IS IN VERBAL RELEASE) LAST NIGHT.
--- NOTE | 2019-02-22 07:30 | NUR ---
BEGINNING OF SHIFT Assumed care of pt at 0700 with Xena DENNY. Bedside report received from Tatiana DENNY. Pt awake. Pt follows directions: reimbursement manager, stick out tongue, wiggle toes. Propofol remains off from previous shift. Pt remains on spontaneous mode on ventilator. Pt calm and cooperative. Educated on rational for continued restraint. Pt nods head to indicate understanding. Wrinkled skin noted to BUE and BLE. Pt able to assist with repositioning.
--- NOTE | 2019-02-22 09:24 | NUR ---
UPDATE Dr White in to see pt at 0825. Update given to provider. Provider states plan for extubation today. Pt extubated at 0834 by RT El. OG tube also removed at this time. SWW removed. Pt on 5 LPM oxymizer. SpO2 90% or greater. Plans to get pt up in chair after dialysis. Dr Smyth in to see pt at 0915. Update given to provider. Requested order for PT/OT. Discussed possibilty of transferring pt to PCU or medical floor. Discussed drop in H&H this AM. Plans to discuss with Dr Miller and inquire if transfusion is necessary. Dr Miller in to see pt at 0930. Plan of care discussed with Dr Miller and Dr Smyth. Plans for pt to have dialysis this AM. Plans to recheck H&H at 1500. Lovell catheter to be removed today.
--- NOTE | 2019-02-22 09:57 | NUR ---
AM MEDICATIONS OG tube removed during extubation. Will trial PO intake 2 hours post-extubation.
--- NOTE | 2019-02-22 10:08 | NUR ---
DIALYSIS AT ICU STAFF REQUEST I WAITED UNTIL PT WAS EXTUBATED BEFORE ENTERING ROOM. PT IS AWAKE, COOPERATIVE, AND FRIENDLY. EXPLAINED SEVERAL ASPECTS OF DIALYSIS TO HIM AND ANSERED SOME QUESTIONS HE HAD.
--- NOTE | 2019-02-22 10:20 | NUR ---
DIALYSIS Pt receiving dialysis in room. Siria DENNY at bedside.
[2019-02-22 10:41] LABS: Percent Saturation 9.6 % (20.0-50.0)
--- NOTE | 2019-02-22 10:45 | NUR ---
UPDATE Pt on 5 LPM oxymizer. SpO2 100%. Titrated down to 2 LPM. SpO2 currently 99%.
--- NOTE | 2019-02-22 11:15 | NUR ---
O2 REQUIREMENTS Pt currently on room air. SpO2 97%.
--- NOTE | 2019-02-22 11:17 | NUR ---
O2 REQUIREMENTS / PO INTAKE Pt currently on room air. SpO2 97%. Trialed clear liquids. Pt tolerated well without coughing, choking, or gagging. Pt took PO meds whole with cranberry juice and miralax, tolerated well. Pt to receive lunch tray this afternoon.
--- NOTE | 2019-02-22 13:39 | NUR ---
CALL PLACED TO DR RIVERA Notified provider of pt's elevated BP. Orders given to restart pt's home dose of hydralyzine. Also notified provider that pt has not had a BM since 02/17. Orders given for one time dose of lactulose.
--- NOTE | 2019-02-22 14:32 | NUR ---
02/22/19 1432 Delicia Panchal VERIFICATIONS: EDIT CHART.
[2019-02-22 15:35] LABS: Hematocrit 26.3 % (37.0-53.0); Hemoglobin 8.8 g/dL (13.5-17.5)
--- NOTE | 2019-02-22 16:55 | NUR ---
ICU SUMMARY Pt A&O x 4. Pleasant and cooperative with care. In room dialysis complete around noon. Pt up to recliner with PT. Pt worked with OT afterwards. Remained in recliner until 1630. This RN assisted pt to bedside commode with one person assist and gait belt. Pt tolerated activity well. Utilizes call light before mobilizing. Pt remains on room air with SpO2 96% or greater. SR per monitor. Swelling to BUE. Right hand more edematous than left. Pt states pain to right wrist. No bruising. Able to move all fingers, but weak. Pt assigned to room 360. Telephone report given to Xuan DENNY. Pt departed from ICU at 1655 via wheelchair, accompanied by Xena DENNY.
--- NOTE | 2019-02-22 17:00 | NUR ---
PT TRANSFERED. PT TRANSFERED AT 1455. PT IN STABLE CONDITION WITH VSS. PT ORIENTED TO ROOM. CALL LIGHT IN REACH. NO CHANGES IN PRIOR ASSESSMENT. WILL CONINUE TO MONITOR UNTIL TURNOVER IS COMPLETE.
--- NOTE | 2019-02-22 18:03 | NUR ---
SHIFT SUMMARY NO CHANGES SINCE TRANSFER. WILL CONTINUE TO MONITOR.
[2019-02-23 05:13] LABS: BASOPHILS ABSOLUTE AUTO 0.02 K/mm3 (0.00-0.23); BASOPHILS PERCENT AUTO 0 % (0-2); EOSINOPHILS ABSOLUTE AUTO 0.09 K/mm3 (0.00-0.68); EOSINOPHILS PERCENT AUTO 1 % (0-6); IMMATURE GRAN ABSOLUTE AUTO 0.06 K/mm3 (0.00-0.10); IMMATURE GRAN PERCENT AUTO 1 % (0-1); LYMPHOCYTES ABSOLUTE AUTO 1.17 K/mm3 (0.84-5.20); LYMPHOCYTES PERCENT AUTO 12 % (21-46); MONOCYTES ABSOLUTE AUTO 1.77 K/mm3 (0.16-1.47); MONOCYTES PERCENT AUTO 18 % (4-13); Mean Corpuscular HGB 30.8 pg (26.0-34.0); Mean Corpuscular HGB Conc 33.3 g/dL (31.5-36.5); Mean Corpuscular Volume 92 fL (80-100); Mean Platelet Volume 10.3 fL (9.1-12.4); NEUTROPHILS ABSOLUTE AUTO 6.55 K/mm3 (1.96-9.15); NEUTROPHILS PERCENT AUTO 68 % (41-73); Platelet Count 278 K/mm3 (150-400); RDW Coefficient Variation 13.7 % (11.7-14.2); RDW Standard Deviation 46.2 fL (35.1-46.3); White Blood Cell Count 9.66 K/mm3 (4.00-11.30)
--- NOTE | 2019-02-23 05:28 | NUR ---
02/23/19 0500 HAND WELT BUTTER DOING VITALS AND RN DRAWING BLOOD FOR LABWORK. PT STATES PERMA- CATH SITE IS STILL SORE BUT DECLINED ANY PAIN MED FOR NOW. VITALS STABLE. UP TO BATHROOM FOR ORAL CARE AND THEN HAD A "BLACK" STOOL BUT FLUSHED IT DOWN BEFORE RN COULD VIEW. HEART MONITOR STABLE WITH SR IN THE 60'S. NO VOIDING THIS SHIFT. PLAN DIALYSIS TODAY.
[2019-02-23 05:35] LABS: Bun/Creatinine Ratio 7.4 (12.0-20.0); Creatinine, Blood 4.47 mg/dL (0.60-1.20); Potassium, Blood 3.4 mmol/L (3.5-5.5)
[2019-02-23 16:06] LABS: HEPATITIS C QUANTITATION HCV Not Detected IU/mL (.)
--- NOTE | 2019-02-23 17:44 | NUR ---
SHIFT SUMMARY- PT DENIES PAIN. DENIES SOB. 97% ON RA. DENIES N/V. SINUS PATY AT 58 PER PCU RN SURGERY. PT HAD DIALYSIS THIS AM. DR. RITTER IN TO SEE PT THIS PM. DIETARY CONSULT ENTERED PER DR. RITTER. PICC LINE DRESSING CHANGED. 7CM OF CATHETER EXPOSED. LUIS LAPEL BASTER NOTIFIED. PT NOT RECIEVING MEDS/FLUIDS VIA PICC. PICC FLUSHES. DR. RITTER REPORTS PICC TO BE REMOVED BEFORE PT D/C. NO OTHER SIGNIFICANT CHANGES THIS SHIFT.
[2019-02-24 05:43] LABS: BASOPHILS ABSOLUTE AUTO 0.03 K/mm3 (0.00-0.23); BASOPHILS PERCENT AUTO 0 % (0-2); EOSINOPHILS ABSOLUTE AUTO 0.32 K/mm3 (0.00-0.68); EOSINOPHILS PERCENT AUTO 3 % (0-6); Hematocrit 25.2 % (37.0-53.0); Hemoglobin 8.2 g/dL (13.5-17.5); IMMATURE GRAN ABSOLUTE AUTO 0.08 K/mm3 (0.00-0.10); IMMATURE GRAN PERCENT AUTO 1 % (0-1); LYMPHOCYTES PERCENT AUTO 14 % (21-46); MONOCYTES ABSOLUTE AUTO 1.71 K/mm3 (0.16-1.47); MONOCYTES PERCENT AUTO 17 % (4-13); Mean Corpuscular HGB 29.8 pg (26.0-34.0); Mean Corpuscular HGB Conc 32.5 g/dL (31.5-36.5); Mean Corpuscular Volume 92 fL (80-100); Mean Platelet Volume 9.9 fL (9.1-12.4); NEUTROPHILS ABSOLUTE AUTO 6.44 K/mm3 (1.96-9.15); NEUTROPHILS PERCENT AUTO 65 % (41-73); Platelet Count 307 K/mm3 (150-400); RDW Coefficient Variation 13.5 % (11.7-14.2); Red Blood Cell Count 2.75 M/mm3 (4.30-5.90); White Blood Cell Count 9.98 K/mm3 (4.00-11.30)
[2019-02-24 06:02] LABS: Albumin, Blood 2.2 g/dL (3.4-5.0); Anion Gap 6 mmol/L (6-16); Blood Urea Nitrogen 30 mg/dL (8-24); Bun/Creatinine Ratio 7.6 (12.0-20.0); CO2, Blood 33 mmol/L (21-32); Calcium, Blood 8.1 mg/dL (8.5-10.1); Chloride, Blood 97 mmol/L (98-108); Creatinine, Blood 3.94 mg/dL (0.60-1.20); Glomerular Filtration Rate 16 (60-); Glucose, Blood 108 mg/dL (70-99); Phosphorus, Blood 2.6 mg/dL (2.5-4.9); Potassium, Blood 3.4 mmol/L (3.5-5.5); Sodium, Blood 136 mmol/L (136-145)
--- NOTE | 2019-02-24 19:31 | NUR ---
PT A/OX3, PLEASANT AND COOPERATIVE, PT IS UP IND IN HIS ROOM, THE PT APPEARS TO BE BREATHING EASILY ON RA, THE PT WAS MEDICATED X1 FOR PAIN IN HIS LEFT FOOT, THE PT RECIEVED DIALYSIS TODAY AND TOLERATED IT WELL, PLAN DISCHARGE TOMARROW AM, CALL LIGHT IN REACH
[2019-02-25 07:01] LABS: BASOPHILS ABSOLUTE AUTO 0.03 K/mm3 (0.00-0.23); BASOPHILS PERCENT AUTO 0 % (0-2); EOSINOPHILS ABSOLUTE AUTO 0.49 K/mm3 (0.00-0.68); EOSINOPHILS PERCENT AUTO 5 % (0-6); Hematocrit 27.1 % (37.0-53.0); Hemoglobin 8.7 g/dL (13.5-17.5); IMMATURE GRAN ABSOLUTE AUTO 0.15 K/mm3 (0.00-0.10); IMMATURE GRAN PERCENT AUTO 2 % (0-1); LYMPHOCYTES ABSOLUTE AUTO 1.77 K/mm3 (0.84-5.20); LYMPHOCYTES PERCENT AUTO 18 % (21-46); MONOCYTES ABSOLUTE AUTO 1.84 K/mm3 (0.16-1.47); MONOCYTES PERCENT AUTO 18 % (4-13); Mean Corpuscular HGB 29.7 pg (26.0-34.0); Mean Corpuscular HGB Conc 32.1 g/dL (31.5-36.5); Mean Corpuscular Volume 93 fL (80-100); Mean Platelet Volume 9.6 fL (9.1-12.4); NEUTROPHILS ABSOLUTE AUTO 5.78 K/mm3 (1.96-9.15); NEUTROPHILS PERCENT AUTO 57 % (41-73); Platelet Count 351 K/mm3 (150-400); RDW Coefficient Variation 13.3 % (11.7-14.2); RDW Standard Deviation 45.1 fL (35.1-46.3); Red Blood Cell Count 2.93 M/mm3 (4.30-5.90); White Blood Cell Count 10.06 K/mm3 (4.00-11.30)
[2019-02-25 07:24] LABS: Albumin, Blood 2.4 g/dL (3.4-5.0); Anion Gap 7 mmol/L (6-16); Blood Urea Nitrogen 41 mg/dL (8-24); Bun/Creatinine Ratio 8.8 (12.0-20.0); CO2, Blood 31 mmol/L (21-32); Calcium, Blood 8.5 mg/dL (8.5-10.1); Chloride, Blood 97 mmol/L (98-108); Creatinine, Blood 4.66 mg/dL (0.60-1.20); Glomerular Filtration Rate 13 (60-); Glucose, Blood 104 mg/dL (70-99); Phosphorus, Blood 3.3 mg/dL (2.5-4.9); Potassium, Blood 3.3 mmol/L (3.5-5.5); Sodium, Blood 135 mmol/L (136-145)
--- NOTE | 2019-02-25 07:36 | NUR ---
THE PATIENT RESTED QUIETLY THROUGH THE NIGHT AND IS READY FOR DISCHARGE THIS MORNING
[2019-02-25] MEDS ORDERED: Miralax17 GM PO (09:42)
[2019-02-25] MEDS ORDERED: Bumetanide2 MG PO (09:43)
--- NOTE | 2019-02-25 10:21 | NUR ---
PT DCD HOME WITH FRIEND MOMO. ALL DC INSTRUCTIONS REVIEWED WITH PT AND FRIEND WHO BOTH VERBALIZED AN UNDERSTANDING. CHARGE NURSE COMPLETED PACKET [facility] AND THIS WAS GIVEN TO FRIEND, MOMO. PERIPHERAL IV WAS REMOVED WITH NO ISSUE. ALL BELONGINGS SENT WITH PT. PT STABLE UPON DC.
== END 2019-02-25 10:23 | disposition home or self-care (01) | DRG 673 ==
LOC: ER 17:07 → MEDS 18:15 → ICUE 18:15 → MEDS 21:01 → ICUW 02-16 13:06 → ICUE 02-16 17:00 → MEDS 02-17 17:40 → ICUE 02-20 19:36 → MEDS 02-22 16:45 → ENPENDDIS 02-25 08:37 → MEDS 02-25 10:23
PROVIDERS: Hospitalist; Internal Medicine; Internal Medicine Critical Care Medicine; Internal Medicine Pulmonary Disease; ADMIT Hospitalist
PROC: 0TB03ZX Excision of Right Kidney, Percutaneous Approach, Diagnostic (ICD-10-PCS; principal; 2019-02-16)
PROC: 04L93DZ Occlusion of Right Renal Artery with Intraluminal Device, Percutaneous Approach (ICD-10-PCS; 2019-02-17)
PROC: 04793DZ Dilation of Right Renal Artery with Intraluminal Device, Percutaneous Approach (ICD-10-PCS; 2019-02-17)
PROC: 5A09357 Assistance with Respiratory Ventilation, Less than 24 Consecutive Hours, Continuous Positive Airway Pressure (ICD-10-PCS; 2019-02-20)
PROC: 05HM33Z Insertion of Infusion Device into Right Internal Jugular Vein, Percutaneous Approach (ICD-10-PCS; 2019-02-21)
PROC: B543ZZA Ultrasonography of Right Jugular Veins, Guidance (ICD-10-PCS; 2019-02-21)
PROC: 5A1D70Z Performance of Urinary Filtration, Intermittent, Less than 6 Hours Per Day (ICD-10-PCS; 2019-02-21)
PROC: 0BH17EZ Insertion of Endotracheal Airway into Trachea, Via Natural or Artificial Opening (ICD-10-PCS; 2019-02-21)
PROC: 5A1935Z Respiratory Ventilation, Less than 24 Consecutive Hours (ICD-10-PCS; 2019-02-21)
DX: N17.9 Acute kidney failure, unspecified (principal); J96.01 Acute respiratory failure with hypoxia; I13.0 Hypertensive heart and chronic kidney disease with heart failure and stage 1 through stage 4 chronic kidney disease, or unspecified chronic kidney disease; I50.30 Unspecified diastolic (congestive) heart failure; D62 Acute posthemorrhagic anemia; N99.820 Postprocedural hemorrhage of a genitourinary system organ or structure following a genitourinary system procedure; Z79.82 Long term (current) use of aspirin; N18.6 End stage renal disease; N04.9 Nephrotic syndrome with unspecified morphologic changes; K21.9 Gastro-esophageal reflux disease without esophagitis; N40.0 Benign prostatic hyperplasia without lower urinary tract symptoms; D63.1 Anemia in chronic kidney disease; J44.9 Chronic obstructive pulmonary disease, unspecified; Z68.29 Body mass index [BMI] 29.0-29.9, adult; E66.9 Obesity, unspecified; E83.39 Other disorders of phosphorus metabolism; E78.5 Hyperlipidemia, unspecified; I95.9 Hypotension, unspecified; R07.81 Pleurodynia; Z85.05 Personal history of malignant neoplasm of liver; N26.9 Renal sclerosis, unspecified; E87.70 Fluid overload, unspecified; I70.1 Atherosclerosis of renal artery; F17.210 Nicotine dependence, cigarettes, uncomplicated; Z99.2 Dependence on renal dialysis
CPT/HCPCS: 31720; 36251-RT; 36253-RT; 36415; 36430; 36569; 36600; 37236; 37244; 50200; 51702; 71045; 71046; 75774; 76705; 76770; 77001; 77012; 80048; 80053; 80069; 81001; 82306; 82330; 82570; 82607; 82728; 82746; 82784; 82803; 82947; 83520; 83540; 83550; 83735; 83880; 83970; 84156; 84165; 85014; 85018; 85025; 85045; 85610; 85730; 86038; 86256; 86317; 86334; 86480; 86592; 86704; 86708; 86803; 86850; 86900; 86901; 86923; 87070; 87205; 87340; 87389; 87522; 88305; 88313; 88329; 88346; 88348; 88350; 93005; 93010; 93306; 93975; 94002; 94003; 94660; 94667; 94761; 94762; 97162; 97164; 97165; 97530; 97535; 99152; 99153; 99285; A9270-GY; C1750; C1751; C1769; C1876; C1887; C1894; J0690; J0881; J1170; J1644; J1940; J2250; J2370; J2405; J2704; J3010; J7030; J7040; J7050; P9016; Q9967